=== PATIENT | female | born 1960 | race Caucasian/White ===

== ENCOUNTER 2019-09-17 13:41 | Day surgery (SDC) | payer BC ==
[2019-09-17] MEDS ORDERED: LIDOCAINE 2% MDV (20MG/ML) 20ML VIAL IV ONE (13:42)
[2019-09-17] MEDS ORDERED: PROPOFOL 10 MG/ML VIAL IV ONE (13:42)
[2019-09-17] MEDS ORDERED: GLYCOPYRROLATE 0.2 MG/ML ML IV ONE (13:42)
--- NOTE | 2019-09-18 07:20 | Operative Note ---
OPERATION: COLONOSCOPY with cold forceps polypectomy/biopsy. PREOPERATIVE DIAGNOSIS: Colon cancer screening, average risk. POSTOPERATIVE DIAGNOSES: 1. Sigmoid diverticulosis with marked angulation. 2. Transverse colon polyp. PROCEDURE: After informed consent was obtained from the patient, she was placed in the left lateral decubitus position in the endoscopy suite, sedated and monitored by the department of anesthesia. Digital rectal exam was unremarkable. A well-lubricated [id number] colonoscope was inserted into the rectum and advanced through an angulated, somewhat restricted sigmoid colon to the descending colon and transverse colon. Given the looping, I was unable to advance the pediatric scope farther. This was despite abdominal pressure as well. The pediatric colonoscope was removed and a CF160 colonoscope was inserted into the rectum and advanced to the cecum. The cecum and cecal bulb were unremarkable. The ascending colon was unremarkable. There was a questionable transverse colon polyp removed with a cold forceps. It was quite diminutive. The remainder of the transverse colon, descending colon, sigmoid colon, and rectum were unremarkable other than moderate left-sided diverticular disease. Forward and J-turn views of the rectum and anorectum were unrevealing. The endoscope was straightened, the rectal ampulla deflated, and the endoscope was removed. RECOMMENDATIONS: The patient should follow a high-fiber diet. She will require repeat exam in 5-10 years pending tissue histology. As always, thank you for allowing me to participate in the healthcare of your patients. DIGNA
== END 2019-09-17 15:20 | disposition home or self-care (01) ==
LOC: HOP 13:41
PROVIDERS: ATTEND Internal Medicine Gastroenterology
DX: Z12.11 Encounter for screening for malignant neoplasm of colon (principal); D12.3 Benign neoplasm of transverse colon; K57.30 Diverticulosis of large intestine without perforation or abscess without bleeding; K56.609 Unspecified intestinal obstruction, unspecified as to partial versus complete obstruction; E11.9 Type 2 diabetes mellitus without complications; I10 Essential (primary) hypertension; E78.00 Pure hypercholesterolemia, unspecified